=== PATIENT | male | born 1995 | race Two or more races ===

== ENCOUNTER 2024-12-22 21:02 | Emergency (ER) | payer OTHER ==
[~2024-12-22] VITALS: Ht 195.6 cm; Wt 109.0 kg
[2024-12-23] MEDS: IBUPROFEN 400 MG TABLET PO ONE
[2024-12-23] MEDS: ACETAMINOPHEN 500 MG TABLET PO ONE (00:22)
[2024-12-23 00:30] VITALS: BP 116/5; PULSE 75; RESP 18; TEMP 97.7; O2SAT 100
== END 2024-12-23 03:11 | disposition home or self-care (01) ==
LOC: EMS 21:02
DX: K08.89 Other specified disorders of teeth and supporting structures (principal); T16.1XXA Foreign body in right ear, initial encounter; F17.210 Nicotine dependence, cigarettes, uncomplicated; W44.F9XA Other object of natural or organic material, entering into or through a natural orifice, initial encounter
CPT/HCPCS: 99284; Z7502; Z7610